=== PATIENT | male | born 1980 | race Caucasian/White ===

== ENCOUNTER 2022-09-24 09:44 | Day surgery (SDC) | payer BC, OTHER ==
[~2022-09-24 09:44] MED LIST: Lactated Ringers 1,000 ML IV SCH; Lidocaine 1%/Sod Bicarbonate in NS 8.4% 1 ML Syringe IDERM PRN; Sodium Chloride 0.9% 10 ML Syringe FLUSH PRN; Sodium Chloride 0.9% 10 ML Syringe FLUSH SCH
[2022-09-24] MEDS ORDERED: Lidocaine 1% 4 ML ONE (10:47)
[2022-09-24] MEDS ORDERED: Propofol 200 MG/20 ML SDV ONE ×3 (10:47→11:43)
[2022-09-24] MEDS ORDERED: Ketamine 500 mg/10 ML MDV ONE (10:47)
[2022-09-24] MEDS ORDERED: fentaNYL 100 MCG/2 ML SDV ONE (11:10)
[2022-09-24] MEDS ORDERED: Bupivacaine 0.5% 30 ML SDV ONE (11:51)
[2022-09-24] MEDS ORDERED: Ketorolac 15 MG/ML SDV ONE (11:52)
[2022-09-24 12:53] VITALS: BP 115/78; PULSE 82
== END 2022-09-24 12:48 | disposition home or self-care (01) ==
LOC: JD.SDS 09:44
PROVIDERS: ATTEND Surgery
DX: K62.1 Rectal polyp (principal); K51.40 Inflammatory polyps of colon without complications; K64.4 Residual hemorrhoidal skin tags; Z91.030 Bee allergy status; Z87.440 Personal history of urinary (tract) infections
CPT/HCPCS: 45380; 46221; J1885; J2704; J3010; J3490; J7120; 00902

== ENCOUNTER 2024-06-29 07:47 | Day surgery (SDC) | payer BC ==
[~2024-06-29 07:47] MED LIST changes: +HYDROmorphone 0.5 MG/0.5 ML Syringe IVPUSH PRN; -Lactated Ringers 1,000 ML IV SCH; -Lidocaine 1%/Sod Bicarbonate in NS 8.4% 1 ML Syringe IDERM PRN; +Ondansetron 4 MG/2 ML SDV IVPUSH PRN; +fentaNYL 100 MCG/2 ML SDV IVPUSH PRN
[2024-06-29] MEDS: Lactated Ringers 1,000 ML IV SCH (08:15)
[2024-06-29] MEDS ORDERED: Lidocaine 1% 4 ML ONE (08:19)
[2024-06-29] MEDS ORDERED: Propofol 200 MG/20 ML SDV ONE ×3 (08:19→09:14)
[2024-06-29] MEDS ORDERED: Midazolam 1 MG/ML 2 ML SDV ONE (08:21)
[2024-06-29] MEDS ORDERED: Simethicone Drops 40 MG/0.6 ML 30 ML Bottle ONE (08:50)
[2024-06-29 10:00] VITALS: BP 136/96; PULSE 87
== END 2024-06-29 10:15 | disposition home or self-care (01) ==
LOC: JD.SDS 07:47
PROVIDERS: ATTEND Surgery
DX: K63.5 Polyp of colon (principal); K62.5 Hemorrhage of anus and rectum; K29.50 Unspecified chronic gastritis without bleeding; K20.0 Eosinophilic esophagitis; K63.89 Other specified diseases of intestine; K52.9 Noninfective gastroenteritis and colitis, unspecified; K22.89 Other specified disease of esophagus; K29.80 Duodenitis without bleeding; K64.8 Other hemorrhoids; K21.9 Gastro-esophageal reflux disease without esophagitis; Z80.0 Family history of malignant neoplasm of digestive organs; Z79.899 Other long term (current) drug therapy; Z91.030 Bee allergy status; Z91.09 Other allergy status, other than to drugs and biological substances
CPT/HCPCS: 43239; 45380; A9270; J2250; J2704; J7120; 00813; J3490

== ENCOUNTER 2024-12-07 18:03 | Inpatient (IN) | payer BC ==
[2024-12-07] MEDS ORDERED: Sodium Chloride 0.9% 10 ML Syringe FLUSH PRN (18:54)
[2024-12-07 19:58] LABS: HEMATOCRIT 47.7 % (42.0-52.0); HEMOGLOBIN 16.2 gm/dl (14.0-18.0); MEAN CORPUSCULAR HEMOGLOBIN 28.2 pg (28.0-32.0); MEAN CORPUSCULAR VOLUME 83.1 fl (83.0-99.0); MEAN PLATELET VOLUME 10.2 fl (9.4-12.4); PLATELET COUNT,PLT 159 K/mm3 (150-400); RED BLOOD CELL COUNT 5.74 M/mm3 (4.52-5.90); WHITE BLOOD CELL COUNT,WBC 13.07 K/mm3 (3.9-11.3)
[2024-12-07] MEDS: Sodium Chloride 0.9% 1,000 ML IV ONE ×3 (20:00→22:20)
[2024-12-07] MEDS: VANCOmycin 2 GM/400 ML 2 GM in Premix Bag 1 BAG IV ONE (20:01)
[2024-12-07 20:26] LABS: LACTIC ACID 1.3 mmol/L (0.4-2.0)
[2024-12-07 20:35] LABS: A/G RATIO 0.9 (1-2); ALANINE AMINOTRANSFERASE,ALT 41 U/L (16-63); ALBUMIN 3.5 g/dl (3.4-5.0); ALKALINE PHOSPHATASE 94 U/L (46-116); ANION GAP 14.6 (5-15); ASPARTATE AMNIOTRANSFERASE,AST 26 U/L (15-37); BAND PERCENT MAN 5 % (0-10); BASOPHILS PERCENT MAN 0 (0.2-1.2); BLOOD UREA NITROGEN,BUN 16 mg/dL (7-18); BUN/CREATININE RATIO 14.5 (14-18); CALCIUM 9.3 mg/dL (8.5-10.1); CARBON DIOXIDE,CO2 27 mEq/L (21-32); CHLORIDE,CL 98 mEq/L (98-107); CREATININE 1.1 mg/dL (0.7-1.3); EOSINOPHILS PERCENT MAN 3 % (0.8-7.0); ESTIMATED GFR 85 mL/min (>60); GLUCOSE RANDOM 89 mg/dL (70-99); LYMPHOCYTES % ATYPICAL MANUAL 0 %; LYMPHOCYTES PERCENT MAN 17 % (20-40); MONOCYTES PERCENT MAN 9 % (2-10); POTASSIUM,K 3.6 mEq/L (3.5-5.1); PROTEIN TOTAL,TP 7.5 g/dl (6.4-8.2); SODIUM,NA 136 mEq/L (136-145)
[2024-12-07 20:36] LABS: PLATELET COUNT ESTIMATE ADEQUATE
[2024-12-07] MEDS ORDERED: Docusate Sodium 100 MG Cap PO PRN (21:25)
[2024-12-07] MEDS ORDERED: Ondansetron 4 MG/2 ML SDV IV PRN (21:25)
[2024-12-07] MEDS ORDERED: Melatonin 3 MG Tab PO PRN (21:25)
[2024-12-07 21:48] LABS: INR 1.11; PROTHROMBIN TIME 11.7 SECONDS (9.7-12.0)
[2024-12-08 04:40] LABS: BASOPHILS ABSOLUTE AUTO 0.1 K/mm3 (0.0-0.2); BASOPHILS PERCENT AUTO 0.4 % (0.0-1.0); EOSINOPHILS ABSOLUTE AUTO 0.3 K/mm3 (0.0-0.4); EOSINOPHILS PERCENT AUTO 2.5 % (0.0-6.0); HEMATOCRIT 45.8 % (42.0-52.0); HEMOGLOBIN 15.4 gm/dl (14.0-18.0); IMMATURE GRAN ABSOLUTE AUTO 0.05 K/mm3 (0.00-0.05); IMMATURE GRAN PERCENT AUTO 0.4 % (0.0-0.4); LYMPHOCYTES ABSOLUTE AUTO 1.4 K/mm3 (1.0-4.8); LYMPHOCYTES PERCENT AUTO 10.7 % (24.0-44.0); MEAN CORPUSCULAR HEMOGLOBIN 28.3 pg (28.0-32.0); MEAN CORPUSCULAR HGB CONC 33.6 g/dl (32.0-36.0); MEAN CORPUSCULAR VOLUME 84.2 fl (83.0-99.0); MEAN PLATELET VOLUME 10.8 fl (9.4-12.4); MONOCYTES ABSOLUTE AUTO 1.9 K/mm3 (0.0-0.8); NEUTROPHILS ABSOLUTE AUTO 9.7 K/mm3 (1.8-7.7); PLATELET COUNT,PLT 131 K/mm3 (150-400); RED BLOOD CELL COUNT 5.44 M/mm3 (4.52-5.90); WHITE BLOOD CELL COUNT,WBC 13.45 K/mm3 (3.9-11.3)
[2024-12-08 05:01] LABS: ANION GAP 12.6 (5-15); BUN/CREATININE RATIO 10.9 (14-18); C-REACTIVE PROTEIN 14.95 mg/dL (<0.30); CALCIUM 8.5 mg/dL (8.5-10.1); CREATININE 1.1 mg/dL (0.7-1.3); EST CRCL DRUG DOSING (CG) 95.04 mL/min; POTASSIUM,K 3.6 mEq/L (3.5-5.1)
[2024-12-08 05:20] LABS: SLIDE REVIEW ABNORMAL SMEAR
[2024-12-08] MEDS ORDERED: oxyCODONE 5 MG Tab PO PRN (09:26)
[2024-12-08] MEDS ORDERED: Sennosides/Docusate Sodium 50-8.6 MG Tab PO PRN (09:26)
[2024-12-08] MEDS: Cefepime 2 GM Vial IVPUSH SCH (10:02)
[2024-12-08] MEDS: Enoxaparin 40 MG/0.4 ML Syringe SUBCUT SCH (10:02)
[2024-12-08] MEDS: Acetaminophen 325 MG Tab PO PRN (10:22)
[2024-12-08] MEDS: VANCOmycin 1.5 GM/300 ML 1.5 GM in Premix Bag 1 BAG IV SCH (10:23)
[2024-12-08] MEDS ORDERED: Succinylcholine 200 MG/10 ML MDV ONE (15:00)
[2024-12-08] MEDS ORDERED: Etomidate 2 MG/ML 20 ML SDV ONE (15:00)
[2024-12-08] MEDS: Sodium Chloride 0.9% 1,000 ML ONE (20:39)
[2024-12-09 04:28] LABS: BASOPHILS ABSOLUTE AUTO 0.1 K/mm3 (0.0-0.2); BASOPHILS PERCENT AUTO 0.4 % (0.0-1.0); EOSINOPHILS ABSOLUTE AUTO 0.4 K/mm3 (0.0-0.4); EOSINOPHILS PERCENT AUTO 2.8 % (0.0-6.0); HEMATOCRIT 42.7 % (42.0-52.0); HEMOGLOBIN 14.4 gm/dl (14.0-18.0); IMMATURE GRAN PERCENT AUTO 0.7 % (0.0-0.4); LYMPHOCYTES ABSOLUTE AUTO 1.1 K/mm3 (1.0-4.8); LYMPHOCYTES PERCENT AUTO 7.7 % (24.0-44.0); MEAN CORPUSCULAR HGB CONC 33.7 g/dl (32.0-36.0); MEAN CORPUSCULAR VOLUME 83.1 fl (83.0-99.0); MEAN PLATELET VOLUME 10.5 fl (9.4-12.4); MONOCYTES ABSOLUTE AUTO 1.6 K/mm3 (0.0-0.8); MONOCYTES PERCENT AUTO 11.5 % (0.0-8.0); NEUTROPHILS ABSOLUTE AUTO 10.8 K/mm3 (1.8-7.7); NEUTROPHILS PERCENT AUTO 76.9 % (41.0-71.0); PLATELET COUNT,PLT 142 K/mm3 (150-400); RED BLOOD CELL COUNT 5.14 M/mm3 (4.52-5.90); WHITE BLOOD CELL COUNT,WBC 14.05 K/mm3 (3.9-11.3)
[2024-12-09 05:02] LABS: SLIDE REVIEW ABNORMAL SMEAR
[2024-12-09 05:05] LABS: A/G RATIO 0.7 (1-2); ALBUMIN 2.5 g/dl (3.4-5.0); ANION GAP 12.4 (5-15); BILIRUBIN TOTAL 0.5 mg/dL (0.2-1.0); C-REACTIVE PROTEIN 17.35 mg/dL (<0.30); CALCIUM 8.6 mg/dL (8.5-10.1); EST CRCL DRUG DOSING (CG) 104.54 mL/min; PHOSPHORUS 2.7 mg/dL (2.6-4.7); POTASSIUM,K 3.4 mEq/L (3.5-5.1); PROTEIN TOTAL,TP 6.3 g/dl (6.4-8.2)
[2024-12-09] MEDS: Levothyroxine 25 MCG Tab PO SCH (05:42)
[2024-12-09] MEDS: Cholecalciferol (Vitamin D3) 25 MCG Tab PO SCH (09:11)
[2024-12-09] MEDS: Pantoprazole 40 MG Tab.CR PO SCH (09:11)
[2024-12-09] MEDS ORDERED: Sodium Chloride 0.9% 10 ML Syringe FLUSH PRN (09:17)
[2024-12-09] MEDS: Iopamidol 755 Mg/ML 100 ML Bottle IVPUSH ONE (09:40)
[2024-12-09] MEDS: Sodium Chloride 0.9% 1,000 ML IV SCH (10:09)
[2024-12-09] MEDS: Potassium Phosphates 30 MMOLE in Sodium Chloride 0.9% 500 ML IV ONE (10:20)
[2024-12-09] MEDS: VANCOmycin 2 GM/400 ML 2 GM in Premix Bag 1 BAG IV SCH (14:30)
[2024-12-09] MEDS: Ticagrelor 90 MG Tab PO ONE (15:38)
[2024-12-09] MEDS: Aspirin 325 MG Tab.EC PO ONE (15:38)
[2024-12-09] MEDS: atorvaSTATin 40 MG Tab PO ONE (15:39)
[2024-12-09] MEDS: Heparin Sodium/D5W 250 ML IV SCH (15:50)
[2024-12-09] MEDS: Heparin Sodium 5,000 Units/ML Vial IVPUSH ONE (15:57)
[2024-12-09] MEDS ORDERED: Morphine 4 MG/ML Syringe IVPUSH ONE (16:07)
[2024-12-09 17:00] LABS: ANION GAP 12.7 (5-15); BUN/CREATININE RATIO 7.8 (14-18); CALCIUM 8.6 mg/dL (8.5-10.1); CREATININE 0.9 mg/dL (0.7-1.3); EST CRCL DRUG DOSING (CG) 116.16 mL/min; POTASSIUM,K 3.7 mEq/L (3.5-5.1)
[2024-12-09 17:15] VITALS: BP 151/97; PULSE 97
== END 2024-12-09 16:38 | DRG 720 ==
LOC: JD.ED 18:03 → JD.ICU 21:25
PROVIDERS: ADMIT Family Medicine; ATTEND Student in an Organized Health Care Education/Training Program
DX: A41.9 Sepsis, unspecified organism (principal); I21.3 ST elevation (STEMI) myocardial infarction of unspecified site; L03.115 Cellulitis of right lower limb; K21.9 Gastro-esophageal reflux disease without esophagitis; K52.9 Noninfective gastroenteritis and colitis, unspecified; E66.9 Obesity, unspecified; E03.9 Hypothyroidism, unspecified; Z91.030 Bee allergy status; Z79.899 Other long term (current) drug therapy; Z79.2 Long term (current) use of antibiotics; Z98.890 Other specified postprocedural states; Z90.49 Acquired absence of other specified parts of digestive tract; Z68.39 Body mass index [BMI] 39.0-39.9, adult
CPT/HCPCS: 36415; 73701-26-RT; 73701-RT; 80048; 80053; 80202; 83605; 83735; 84100; 84484; 85007; 85025; 85027; 85610; 86140; 87040; 93005; 93971-26-RT; 93971-RT; 96365; 99284-25; A9270-GY; J0330; J0692; J1644; J1650; J3372; J3490; J7030; J7040; Q9967